=== PATIENT | male | born 1980 | race Caucasian/White ===

== ENCOUNTER → 2023-07-11 08:37 | Outpatient (REF) | payer BC, SELFPAY ==
[2023-07-11 09:02] LABS: % Basophils 0.4 % (0-2); % Eosinophils 3.3 % (0-6); % Immature Granulocytes 0.6 % (0-0.5); % Lymphocytes 23.4 % (20.5-51.1); % Monocytes 11.7 % (1.7-9.3); % Neutrophils 60.6 % (42.2-75.2); Absolute Eosinophils 0.2 10^3/uL (0-0.7); Absolute Lymphocytes 1.2 10^3/uL (1.2-3.4); Absolute Monocytes 0.6 10^3/uL (0.1-0.6); Absolute Neutrophils 3.1 10^3/uL (1.4-6.5); Hematocrit 52.9 % (39.0-52.0); Hemoglobin 17.7 g/dL (13.0-18.0); Mean Corp Hgb Conc. 33.5 g/dL (33.0-37.0); Mean Corpuscular Hgb 28.2 pg (27.0-31.0); Mean Corpuscular Volume 84.4 fL (80.0-94.0); Mean Platelet Volume 9.2 fL (7.4-10.4); Nucleated Red Blood Cells % 0 % (-); Platelet Count 187 10^3/uL (130-400); Red Blood Cell Count 6.27 10^6/uL (4.70-6.10); Red Cell Dist. Width 14.6 % (11.5-14.5); White Blood Cell Count 5.1 10^3/uL (4.8-10.8)
[2023-07-11 09:53] LABS: ALT (SGPT) 79 U/L (0-50); AST (SGOT) 61 U/L (17-59); Albumin 4.5 g/dl (3.5-5.0); Alkaline Phosphatase 53 U/L (38-126); Blood Urea Nitrogen 24 mg/dl (9-20); Calcium 9.3 mg/dl (8.4-10.2); Carbon Dioxide 31 mmol/L (22-30); Chloride 101 mmol/L (98-107); Glucose 106 mg/dl (70-99); Potassium 4.9 mmol/L (3.5-5.1); Sodium 136 mmol/L (135-145); Total Bilirubin 0.9 mg/dl (0.2-1.3); eGFR > 60.00
[2023-07-11 10:55] LABS: Estradiol 29.1 pg/ml (5.4-66); PSA, Total - Diagnostic 0.62 ng/ml (0.0-4.0)
[2023-07-13 10:33] LABS: % Free Testosterone 2.7 % (1.6-2.9); Free Testosterone 86 pg/mL (47-244); Sex Hormone Binding Globulin 12 nmol/L (17-56); Total Testosterone 318 ng/dL (300-890)
== END ==
LOC: REG 08:37
PROVIDERS: ATTENDING PHYSICIAN Surgery
DX: E29.1 Testicular hypofunction (principal); R68.82 Decreased libido
CPT/HCPCS: 36415; 80053; 82670; 84153; 84270; 84402; 84403; 85025

== ENCOUNTER → 2024-08-06 07:43 | Outpatient (REF) | payer BC, SELFPAY ==
[2024-08-06 09:11] LABS: % Basophils 0.6 % (0-2); % Eosinophils 6.9 % (0-6); % Immature Granulocytes 0.4 % (0-0.5); % Lymphocytes 34.8 % (20.5-51.1); % Monocytes 9.8 % (1.7-9.3); % Neutrophils 47.5 % (42.2-75.2); Absolute Eosinophils 0.3 10^3/uL (0-0.7); Absolute Lymphocytes 1.7 10^3/uL (1.2-3.4); Absolute Monocytes 0.5 10^3/uL (0.1-0.6); Absolute Neutrophils 2.3 10^3/uL (1.4-6.5); Hematocrit 59.2 % (39.0-52.0); Hemoglobin 19.3 g/dL (13.0-18.0); Mean Corp Hgb Conc. 32.6 g/dL (33.0-37.0); Mean Platelet Volume 9.3 fL (7.4-10.4); Nucleated Red Blood Cells % 0 % (-); Platelet Count 162 10^3/uL (130-400); Red Blood Cell Count 6.65 10^6/uL (4.70-6.10); Red Cell Dist. Width 16.4 % (11.5-14.5); White Blood Cell Count 4.8 10^3/uL (4.8-10.8)
[2024-08-06 10:36] LABS: ALT (SGPT) 61 U/L (0-50); AST (SGOT) 47 U/L (17-59); Albumin 5.1 g/dl (3.5-5.0); Alkaline Phosphatase 50 U/L (38-126); Blood Urea Nitrogen 22 mg/dl (9-20); Calcium 10.3 mg/dl (8.4-10.2); Carbon Dioxide 21 mmol/L (22-30); Chloride 101 mmol/L (98-107); Glucose 106 mg/dl (70-99); HDL Cholesterol 43 mg/dl; LDL Cholesterol, Calculated 125 mg/dl; Potassium 4.8 mmol/L (3.5-5.1); Sodium 142 mmol/L (135-145); Total Cholesterol 184 mg/dl (50-199); Total Protein 7.7 g/dl (6.3-8.2); Triglyceride 80 mg/dl (10-149); Very Low Density Lipoprotein 16 mg/dl (0-30); eGFR 50.66
[2024-08-06 10:40] LABS: PSA, Total - Screen 0.68 ng/ml (0.0-4.0)
== END ==
LOC: RCS 07:43
PROVIDERS: ATTENDING PHYSICIAN Nurse Practitioner; REFERRING PHYSICIAN Nurse Practitioner Psychiatric/Mental Health
DX: R07.9 Chest pain, unspecified (principal); Z79.899 Other long term (current) drug therapy; Z00.00 Encounter for general adult medical examination without abnormal findings; K21.9 Gastro-esophageal reflux disease without esophagitis; K58.9 Irritable bowel syndrome, unspecified; E23.0 Hypopituitarism; E78.5 Hyperlipidemia, unspecified; R53.82 Chronic fatigue, unspecified; Z12.5 Encounter for screening for malignant neoplasm of prostate
CPT/HCPCS: 93017; 36415; 80053; 80061; 83036; 84443; 85025; G0103

== ENCOUNTER → 2024-11-12 10:10 | Outpatient (REF) | payer BC, SELFPAY ==
[2024-11-12 10:52] LABS: % Basophils 0.6 % (0-2); % Eosinophils 3.7 % (0-6); % Immature Granulocytes 0.6 % (0-0.5); % Monocytes 9.2 % (1.7-9.3); % Neutrophils 56.9 % (42.2-75.2); Absolute Eosinophils 0.2 10^3/uL (0-0.7); Absolute Lymphocytes 1.6 10^3/uL (1.2-3.4); Absolute Monocytes 0.5 10^3/uL (0.1-0.6); Absolute Neutrophils 3.1 10^3/uL (1.4-6.5); Hematocrit 54.4 % (39.0-52.0); Hemoglobin 18.4 g/dL (13.0-18.0); Mean Corp Hgb Conc. 33.8 g/dL (33.0-37.0); Mean Corpuscular Hgb 30.5 pg (27.0-31.0); Mean Corpuscular Volume 90.1 fL (80.0-94.0); Mean Platelet Volume 9.4 fL (7.4-10.4); Nucleated Red Blood Cells % 0 % (-); Platelet Count 161 10^3/uL (130-400); Red Blood Cell Count 6.04 10^6/uL (4.70-6.10); Red Cell Dist. Width 13.5 % (11.5-14.5); White Blood Cell Count 5.4 10^3/uL (4.8-10.8)
[2024-11-12 11:46] LABS: Glycohemoglobin (HgbA1c) 5.6 % (4.0-5.6)
[2024-11-12 13:45] LABS: ALT (SGPT) 48 U/L (0-50); AST (SGOT) 33 U/L (17-59); Albumin 4.6 g/dl (3.5-5.0); Alkaline Phosphatase 51 U/L (38-126); Blood Urea Nitrogen 23 mg/dl (9-20); Calcium 9.5 mg/dl (8.4-10.2); Carbon Dioxide 29 mmol/L (22-30); Chloride 105 mmol/L (98-107); Glucose 103 mg/dl (70-99); HDL Cholesterol 41 mg/dl; LDL Cholesterol, Calculated 92 mg/dl; Sodium 141 mmol/L (135-145); Total Bilirubin 0.5 mg/dl (0.2-1.3); Total Cholesterol 146 mg/dl (50-199); Triglyceride 68 mg/dl (10-149); Very Low Density Lipoprotein 13 mg/dl (0-30); eGFR 58.51
[2024-11-12 15:54] LABS: PSA, Total - Screen 0.58 ng/ml (0.0-4.0)
== END ==
LOC: REG 10:10
PROVIDERS: ATTENDING PHYSICIAN Nurse Practitioner
DX: N28.9 Disorder of kidney and ureter, unspecified (principal); K76.0 Fatty (change of) liver, not elsewhere classified; R73.03 Prediabetes; E78.5 Hyperlipidemia, unspecified; Z00.00 Encounter for general adult medical examination without abnormal findings; K21.9 Gastro-esophageal reflux disease without esophagitis; K58.9 Irritable bowel syndrome, unspecified; E23.0 Hypopituitarism; R53.82 Chronic fatigue, unspecified; Z12.5 Encounter for screening for malignant neoplasm of prostate
CPT/HCPCS: 36415; 80053; 80061; 83036; 85025; G0103

== ENCOUNTER → 2025-02-26 15:10 | Outpatient (REF) | payer BC, SELFPAY | LOC: RAD 15:10 | PROVIDERS: ATTENDING PHYSICIAN Podiatrist Foot Surgery; FAMILY PHYSICIAN Nurse Practitioner | DX: S90.451A Superficial foreign body, right great toe, initial encounter (principal) | CPT/HCPCS: 73630 ==